=== PATIENT | female | born 1960 | race Caucasian/White ===

== ENCOUNTER 2017-01-22 08:05 | Inpatient (IN) | payer MEDICARE, OTHER ==
[~2017-01-22] VITALS: Ht 165.1 cm; Wt 66.0 kg
[~2017-01-22 08:05] MED LIST: ABAT125S; ALPR-475 PO; AMLO10TA4 PO; AMLO1CAP6 PO; AMOX-291 PO; ASCO10004 PO; ASCO100072 PO; ASPI-496 PO; ATOR40TA PO; CALC-141 PO; CALC0.25 PO; CALC667C PO; CALC667C3 PO; CARNITINE PO; CEFA1PIG IV; CEFD300C2 PO; CEFT2FRO2 IV; CHOL20003 PO; CLOP75TA22 PO; CYAN500T18 PO; DICL100G8 PO; DICL100G8 TD; DICL100G8 TP; DILT120C11 PO; DIPH1TAB PO; DOCU-30 PO; DOCU100C8 PO; DOXA2TAB9 PO; DOXY100T PO; DRON5CAP PO; ESOM40CA PO; FAMO40TA61 PO; FERR325T10 PO; FERR325T20 PO; FLUT1AER INH; FLUT1DIS IH; FLUT1DIS3 INH; FOLI0.8T2 PO; FURO-92 PO; HEPA50004 SQ; LACT1CAP24 PO; LACT1CAP35 PO; LEVO100T PO; LEVO100T5 PO; LIDO700A30 TD; LIDO700A5 TD; MAGN400T7 PO; MELA1TAB22 PO; MELA1TAB8 PO; MELA3TAB PO; MELA3TAB37 PO; METO25TA35 PO; METO25TA9 PO; METR500T PO; METROPOLOL PO; MORP10CA10 PO; MORP15TA PO; MORP30TA3 PO; MORP60CA16 PO; MORP60TA22 PO; MULT-326 PO; MYCO180T3 MT; MYCO250C PO; NALO25TA PO; OMEG1CAP34 PO; ONDA8TAB12 PO; ONDA8TAB9 PO; OSEL75CA PO; PANT40TA3 PO; PARO40TA45 PO; PHEN100C PO; PHEN50TA4 PO; PRED10TA PO; PRED10TA14 PO; PRED5TAB PO; PRED5TAB25 PO; PROM25TA10 PO; SODI650T PO; SPIR1TAB PO; UBID100C24 PO; UMEC62.5 INH; VIT1TABL73 PO; VITA1TAB26 PO; WARF2TAB PO; ZOLP-413 PO; [UNRECOGNIZED DRUG - CODE] PO; vitamin b6 PO
[2017-01-22] MEDS ORDERED: SODIUM CHLORIDE 0.9% 1,000 ML IV ONE (08:38)
[2017-01-22] MEDS ORDERED: DUONEB (09:01)
[2017-01-22] MEDS ORDERED: FAMO-79 PO (09:01)
[2017-01-22] MEDS ORDERED: WARF4TAB PO (09:04)
[2017-01-22 09:15] LABS: HEMOGLOBIN 11.6 g/dL (11.7-16.4)
[2017-01-22 09:18] LABS: BLOOD UREA NITROGEN 40 mg/dL (7-18)
[2017-01-22 09:25] LABS: ASPARTATE AMINO TRANSFERASE 32 U/L (15-37); IS PT STATUS REG ER OR PRE ER? YES
[2017-01-22] MEDS ORDERED: CEFTRIAXONE PMX 1GM/50ML 50 ML IVPB ONE (09:30)
[2017-01-22] MEDS ORDERED: CEFTRIAXONE PMX 1GM/50ML 50 ML ONE (09:45)
[2017-01-22 10:21] LABS: DIFF TOTAL CELLS COUNTED 100 CELL DIFF
[2017-01-22] MEDS ORDERED: NITROGLYCERIN OINT 2%, 1GM TP ONE ×2 (10:28→10:30)
[2017-01-22] MEDS ORDERED: FUROSEMIDE 40 MG/4 ML ONE (10:28)
[2017-01-22] MEDS ORDERED: FUROSEMIDE 100 MG/10 ML IV ONE (10:30)
[2017-01-22 10:32] LABS: ANISOCYTOSIS 1+; HYPOCHROMIA 1+; OVALOCYTES 1+; SCHISTOCYTES 1+; VERIFY COUNTS? YES
[2017-01-22] MEDS ORDERED: ENALAPRILAT 1.25 MG/ML, 2ML IV PRN (11:00)
[2017-01-22] MEDS ORDERED: LABETALOL 5MG/ML, 20ML IVPush PRN (11:00)
[2017-01-22] MEDS ORDERED: GUAIFENESIN/DM 200-20MG, 10ML UDC PO PRN (11:00)
[2017-01-22] MEDS ORDERED: MORPHINE SULFATE 4 MG/ML, 1ML IVPush PRN (11:00)
[2017-01-22] MEDS ORDERED: hydrALAzine 20 MG/ML, 1ML IV PRN (11:00)
[2017-01-22] MEDS ORDERED: DOCUSATE 100 MG CAPSULE PO PRN (11:00)
[2017-01-22] MEDS ORDERED: POLYETHYLENE GLYCOL 17 GM PACKET PO PRN (11:00)
[2017-01-22] MEDS ORDERED: VANCOMYCIN PER PHARMACY MC PRN (11:00)
[2017-01-22] MEDS ORDERED: ONDANSETRON 2MG/ML, 2ML IVP PRN (11:00)
[2017-01-22] MEDS ORDERED: ACETAMINOPHEN 325 MG TABLET PO PRN (11:00)
[2017-01-22] MEDS: PHENYTOIN 100 MG CAPSULE PO SCH ×3 (11:00→22:35)
[2017-01-22] MEDS: FLUTICASONE/VILANTEROL 100-25MCG/INH INH SCH (11:00)
[2017-01-22] MEDS ORDERED: PIPERACILLIN/TAZO/PMX 3.375GM 50 ML ONE (11:10)
[2017-01-22] MEDS ORDERED: FAMOTIDINE 20 MG TABLET ONE (11:10)
[2017-01-22] MEDS: FAMOTIDINE 20 MG TABLET PO SCH (11:13)
[2017-01-22] MEDS: PIPERACILLIN/TAZO/PMX 3.375GM 50 ML IV SCH ×3 (11:13→22:38)
[2017-01-22 13:22] VITALS: BP 157/81
[2017-01-22] MEDS: DILTIAZEM 120 MG CAP.ER.12H PO SCH ×2 (14:29→22:36)
[2017-01-22] MEDS ORDERED: PHARMACOKINETIC MONITORING MC PRN (14:30)
[2017-01-22] MEDS ORDERED: PHARMACOKINETIC CONSULTATION MC ONE (14:30)
[2017-01-22] MEDS ORDERED: VANCOMYCIN 1,300 MG in SODIUM CHLORIDE 0.9% 250 ML IV ONE (14:30)
[2017-01-22] MEDS: ALBUTEROL SULFATE 2.5 MG/3 ML NPPB SCH ×2 (15:40→22:13)
[2017-01-22] MEDS: DRONABINOL 5 MG CAPSULE PO SCH ×2 (15:55→19:30)
[2017-01-22] MEDS: morphine SULFATE 60 MG TABLET.ER PO SCH ×2 (16:00→22:58)
[2017-01-22] MEDS ORDERED: PHYTONADIONE 10 MG/ML, 1ML IM ONE (18:00)
[2017-01-22 20:07] VITALS: BP 154/81
[2017-01-22] MEDS: SODIUM CHLORIDE FLUSH 10ML SYR IVF SCH (22:34)
[2017-01-22] MEDS: ATORVASTATIN 40 MG TABLET PO SCH (22:36)
[2017-01-22] MEDS: PAROXETINE 20 MG TABLET PO SCH (22:37)
[2017-01-23 01:45] VITALS: BP 167/84
[2017-01-23] MEDS: ALBUTEROL SULFATE 2.5 MG/3 ML NPPB SCH ×5 (02:13→23:31)
[2017-01-23] MEDS: PIPERACILLIN/TAZO/PMX 3.375GM 50 ML IV SCH ×3 (04:52→22:46)
[2017-01-23 05:41] LABS: HEMOGLOBIN 10.5 g/dL (11.7-16.4)
[2017-01-23 05:51] LABS: BLOOD UREA NITROGEN 54 mg/dL (7-18)
[2017-01-23 05:58] LABS: DIFF TOTAL CELLS COUNTED 100 CELL DIFF
[2017-01-23 06:00] LABS: VERIFY COUNTS? YES
[2017-01-23 06:01] LABS: ANISOCYTOSIS 1+; HYPOCHROMIA 1+; MICROCYTOSIS 1+; OVALOCYTES 1+; TARGET CELLS 1+
[2017-01-23 06:06] LABS: SCHISTOCYTES 1+
[2017-01-23 06:35] VITALS: BP 154/80
[2017-01-23] MEDS: LACTOBACILLUS CHEW TABLET PO SCH (07:49)
[2017-01-23] MEDS: SODIUM CHLORIDE FLUSH 10ML SYR IVF SCH ×2 (07:49→20:31)
[2017-01-23] MEDS: FOLIC ACID 1 MG TABLET PO SCH (07:49)
[2017-01-23] MEDS: FAMOTIDINE 20 MG TABLET PO SCH (07:49)
[2017-01-23] MEDS: AMLODIPINE 5 MG TABLET PO SCH (07:49)
[2017-01-23] MEDS: CALCIUM ACETATE 667 MG CAPSULE PO SCH (07:49)
[2017-01-23] MEDS: FUROSEMIDE 40 MG TABLET PO SCH (07:49)
[2017-01-23] MEDS: PHENYTOIN 100 MG CAPSULE PO SCH ×3 (07:49→20:32)
[2017-01-23] MEDS: morphine SULFATE 60 MG TABLET.ER PO SCH ×3 (07:50→20:32)
[2017-01-23] MEDS: LEVOTHYROXINE 100 MCG TABLET PO SCH (07:50)
[2017-01-23] MEDS: DRONABINOL 5 MG CAPSULE PO SCH ×3 (07:50→19:15)
[2017-01-23] MEDS: DILTIAZEM 120 MG CAP.ER.12H PO SCH ×2 (07:50→20:32)
[2017-01-23] MEDS ORDERED: WARFARIN SODIUM 4 MG PO SCH (09:00)
[2017-01-23] MEDS: FLUTICASONE/VILANTEROL 100-25MCG/INH INH SCH (11:21)
[2017-01-23 13:14] VITALS: BP 132/68
[2017-01-23] MEDS ORDERED: VANCOMYCIN 1,200 MG in SODIUM CHLORIDE 0.9% 250 ML IV ONE (19:00)
[2017-01-23 19:29] VITALS: BP 147/75
[2017-01-23] MEDS ORDERED: PHYTONADIONE 10 MG/ML, 1ML IM ONE (20:00)
[2017-01-23] MEDS: ATORVASTATIN 40 MG TABLET PO SCH (20:32)
[2017-01-23] MEDS: PAROXETINE 20 MG TABLET PO SCH (20:33)
[2017-01-24 02:03] VITALS: BP 166/84
[2017-01-24] MEDS: ALBUTEROL SULFATE 2.5 MG/3 ML NPPB SCH ×5 (02:28→23:30)
[2017-01-24] MEDS: PIPERACILLIN/TAZO/PMX 3.375GM 50 ML IV SCH ×4 (04:24→22:06)
[2017-01-24] MEDS: LEVOTHYROXINE 100 MCG TABLET PO SCH (04:24)
[2017-01-24 06:12] LABS: BLOOD UREA NITROGEN 35 mg/dL (7-18)
[2017-01-24] MEDS ORDERED: DARBEPOETIN 60 MCG/ML SQ SCH (08:30)
[2017-01-24 08:39] VITALS: BP 171/86
[2017-01-24] MEDS: morphine SULFATE 60 MG TABLET.ER PO SCH ×3 (08:42→21:14)
[2017-01-24] MEDS: CALCIUM ACETATE 667 MG CAPSULE PO SCH (08:44)
[2017-01-24] MEDS: FAMOTIDINE 20 MG TABLET PO SCH (08:44)
[2017-01-24] MEDS: DRONABINOL 5 MG CAPSULE PO SCH ×4 (08:44→21:00)
[2017-01-24] MEDS: SODIUM CHLORIDE FLUSH 10ML SYR IVF SCH ×2 (08:45→21:05)
[2017-01-24] MEDS: DILTIAZEM 120 MG CAP.ER.12H PO SCH ×2 (08:45→21:06)
[2017-01-24] MEDS: AMLODIPINE 5 MG TABLET PO SCH (08:45)
[2017-01-24] MEDS: LACTOBACILLUS CHEW TABLET PO SCH (08:45)
[2017-01-24] MEDS: PHENYTOIN 100 MG CAPSULE PO SCH ×3 (08:45→21:06)
[2017-01-24] MEDS: FUROSEMIDE 40 MG TABLET PO SCH (08:45)
[2017-01-24] MEDS: FOLIC ACID 1 MG TABLET PO SCH (08:45)
[2017-01-24] MEDS: FLUTICASONE/VILANTEROL 100-25MCG/INH INH SCH (08:46)
[2017-01-24 16:43] VITALS: BP 150/81
[2017-01-24 19:39] VITALS: BP 132/67
[2017-01-24] MEDS: ATORVASTATIN 40 MG TABLET PO SCH (21:06)
[2017-01-24] MEDS: PAROXETINE 20 MG TABLET PO SCH (22:00)
[2017-01-25 01:19] VITALS: BP 153/77
[2017-01-25] MEDS: ALBUTEROL SULFATE 2.5 MG/3 ML NPPB SCH ×6 (02:47→21:55)
[2017-01-25] MEDS: PIPERACILLIN/TAZO/PMX 3.375GM 50 ML IV SCH ×4 (03:29→23:05)
[2017-01-25 05:33] LABS: HEMOGLOBIN 9.6 g/dL (11.7-16.4)
[2017-01-25 05:57] LABS: BLOOD UREA NITROGEN 51 mg/dL (7-18)
[2017-01-25] MEDS: LEVOTHYROXINE 100 MCG TABLET PO SCH (06:22)
[2017-01-25 06:30] LABS: DIFF TOTAL CELLS COUNTED 100 CELL DIFF
[2017-01-25 06:32] LABS: ANISOCYTOSIS 1+; VERIFY COUNTS? YES
[2017-01-25 06:33] LABS: OVALOCYTES 1+; SCHISTOCYTES 1+
[2017-01-25 08:18] VITALS: BP 161/81
[2017-01-25] MEDS: morphine SULFATE 60 MG TABLET.ER PO SCH ×3 (08:28→21:00)
[2017-01-25] MEDS: DILTIAZEM 120 MG CAP.ER.12H PO SCH ×2 (08:29→23:00)
[2017-01-25] MEDS: FLUTICASONE/VILANTEROL 100-25MCG/INH INH SCH (08:29)
[2017-01-25] MEDS: FUROSEMIDE 40 MG TABLET PO SCH (08:29)
[2017-01-25] MEDS: SODIUM CHLORIDE FLUSH 10ML SYR IVF SCH ×2 (08:30→22:57)
[2017-01-25] MEDS: FOLIC ACID 1 MG TABLET PO SCH (08:30)
[2017-01-25] MEDS: PHENYTOIN 100 MG CAPSULE PO SCH ×3 (08:30→23:00)
[2017-01-25] MEDS: FAMOTIDINE 20 MG TABLET PO SCH (08:31)
[2017-01-25] MEDS: DRONABINOL 5 MG CAPSULE PO SCH ×3 (08:31→22:59)
[2017-01-25] MEDS: AMLODIPINE 5 MG TABLET PO SCH (08:31)
[2017-01-25] MEDS: LACTOBACILLUS CHEW TABLET PO SCH (08:31)
[2017-01-25] MEDS: CALCIUM ACETATE 667 MG CAPSULE PO SCH (08:32)
[2017-01-25 14:30] VITALS: BP 136/86
[2017-01-25 19:20] VITALS: BP 153/77
[2017-01-25] MEDS: ATORVASTATIN 40 MG TABLET PO SCH (22:58)
[2017-01-25] MEDS: PAROXETINE 20 MG TABLET PO SCH (22:58)
[2017-01-26] MEDS: ALBUTEROL SULFATE 2.5 MG/3 ML NPPB SCH ×6 (02:25→22:54)
[2017-01-26 02:59] VITALS: BP 165/77
[2017-01-26] MEDS: PIPERACILLIN/TAZO/PMX 3.375GM 50 ML IV SCH ×3 (05:19→16:00)
[2017-01-26] MEDS: LEVOTHYROXINE 100 MCG TABLET PO SCH (05:19)
[2017-01-26 05:44] LABS: BLOOD UREA NITROGEN 63 mg/dL (7-18)
[2017-01-26 08:11] VITALS: BP 159/80
[2017-01-26] MEDS: SODIUM CHLORIDE FLUSH 10ML SYR IVF SCH ×2 (09:00→21:57)
[2017-01-26] MEDS: FOLIC ACID 1 MG TABLET PO SCH (12:21)
[2017-01-26] MEDS: FLUTICASONE/VILANTEROL 100-25MCG/INH INH SCH (12:21)
[2017-01-26] MEDS: PHENYTOIN 100 MG CAPSULE PO SCH ×3 (12:23→22:00)
[2017-01-26] MEDS: morphine SULFATE 60 MG TABLET.ER PO SCH ×3 (12:23→22:01)
[2017-01-26] MEDS: LACTOBACILLUS CHEW TABLET PO SCH (12:24)
[2017-01-26] MEDS: CALCIUM ACETATE 667 MG CAPSULE PO SCH (12:25)
[2017-01-26] MEDS: AMLODIPINE 5 MG TABLET PO SCH (12:25)
[2017-01-26] MEDS: FAMOTIDINE 20 MG TABLET PO SCH (12:26)
[2017-01-26] MEDS: DILTIAZEM 120 MG CAP.ER.12H PO SCH ×2 (12:26→22:00)
[2017-01-26] MEDS: FUROSEMIDE 40 MG TABLET PO SCH (12:27)
[2017-01-26] MEDS: DRONABINOL 5 MG CAPSULE PO SCH ×4 (12:28→22:02)
[2017-01-26 13:55] VITALS: BP 153/78
[2017-01-26 19:12] VITALS: BP 156/72
[2017-01-26] MEDS: ATORVASTATIN 40 MG TABLET PO SCH (22:00)
[2017-01-26] MEDS: PAROXETINE 20 MG TABLET PO SCH (22:00)
[2017-01-26] MEDS: PIPERACILLIN/TAZO/PMX 2.25GM 50 ML IV SCH (22:03)
[2017-01-27 02:49] VITALS: BP 152/79
[2017-01-27] MEDS: ALBUTEROL SULFATE 2.5 MG/3 ML NPPB SCH ×3 (03:00→10:53)
[2017-01-27] MEDS: PIPERACILLIN/TAZO/PMX 2.25GM 50 ML IV SCH ×2 (05:07→17:43)
[2017-01-27] MEDS: LEVOTHYROXINE 100 MCG TABLET PO SCH (05:07)
[2017-01-27 06:42] VITALS: BP 155/71
[2017-01-27] MEDS ORDERED: DOXY100T PO (07:00)
[2017-01-27] MEDS ORDERED: CEFD300C2 PO (07:00)
[2017-01-27] MEDS ORDERED: WARF3TAB7 PO (07:07)
[2017-01-27] MEDS: SODIUM CHLORIDE FLUSH 10ML SYR IVF SCH (10:04)
[2017-01-27] MEDS: FLUTICASONE/VILANTEROL 100-25MCG/INH INH SCH (10:04)
[2017-01-27] MEDS: DRONABINOL 5 MG CAPSULE PO SCH ×3 (10:04→16:57)
[2017-01-27] MEDS: FOLIC ACID 1 MG TABLET PO SCH (10:05)
[2017-01-27] MEDS: PHENYTOIN 100 MG CAPSULE PO SCH ×2 (10:05→17:43)
[2017-01-27] MEDS: morphine SULFATE 60 MG TABLET.ER PO SCH ×2 (10:05→17:43)
[2017-01-27] MEDS: DILTIAZEM 120 MG CAP.ER.12H PO SCH (10:05)
[2017-01-27] MEDS: LACTOBACILLUS CHEW TABLET PO SCH (10:06)
[2017-01-27] MEDS: FUROSEMIDE 40 MG TABLET PO SCH (10:06)
[2017-01-27] MEDS: AMLODIPINE 5 MG TABLET PO SCH (10:07)
[2017-01-27] MEDS: FAMOTIDINE 20 MG TABLET PO SCH (10:07)
[2017-01-27] MEDS: CALCIUM ACETATE 667 MG CAPSULE PO SCH (10:07)
[2017-01-27] MEDS: VANCOMYCIN 1,300 MG in SODIUM CHLORIDE 0.9% 250 ML IV ONE ×2 (11:30→14:50)
[2017-01-27 15:34] VITALS: BP 142/79
[2017-01-27] MEDS ORDERED: ALBUTEROL/IPRATROPIUM 2.5MG/0.5MG, 3 ML ONE (19:06)
[2017-01-27 19:33] VITALS: BP 132/53
== END 2017-01-27 20:36 | disposition home health service (06) | DRG 871 ==
LOC: ED 10:05 → EDIP 10:06 → ED 10:19 → 5SO 12:31
PROVIDERS: ADMIT Internal Medicine; ATTEND Internal Medicine
PROC: 5A1D60Z (ICD-10-PCS; principal; 2017-01-22)
DX: A41.9 Sepsis, unspecified organism (principal); I50.33 Acute on chronic diastolic (congestive) heart failure; J96.21 Acute and chronic respiratory failure with hypoxia; E43 Unspecified severe protein-calorie malnutrition; N18.6 End stage renal disease; J18.9 Pneumonia, unspecified organism; E87.1 Hypo-osmolality and hyponatremia; I13.2 Hypertensive heart and chronic kidney disease with heart failure and with stage 5 chronic kidney disease, or end stage renal disease; D68.69 Other thrombophilia; F11.20 Opioid dependence, uncomplicated; J44.0 Chronic obstructive pulmonary disease with (acute) lower respiratory infection; J44.1 Chronic obstructive pulmonary disease with (acute) exacerbation; Z68.23 Body mass index [BMI] 23.0-23.9, adult; Y95 Nosocomial condition; K21.9 Gastro-esophageal reflux disease without esophagitis; M32.9 Systemic lupus erythematosus, unspecified; I73.9 Peripheral vascular disease, unspecified; D63.1 Anemia in chronic kidney disease; E03.9 Hypothyroidism, unspecified; E78.00 Pure hypercholesterolemia, unspecified; F32.9 Major depressive disorder, single episode, unspecified; G40.909 Epilepsy, unspecified, not intractable, without status epilepticus; E78.5 Hyperlipidemia, unspecified; I07.1 Rheumatic tricuspid insufficiency; I34.0 Nonrheumatic mitral (valve) insufficiency; I48.91 Unspecified atrial fibrillation; T40.605A Adverse effect of unspecified narcotics, initial encounter; K59.03 Drug induced constipation; Z79.01 Long term (current) use of anticoagulants; Z86.14 Personal history of Methicillin resistant Staphylococcus aureus infection; Z86.19 Personal history of other infectious and parasitic diseases; Z86.73 Personal history of transient ischemic attack (TIA), and cerebral infarction without residual deficits; Z87.891 Personal history of nicotine dependence; Z99.2 Dependence on renal dialysis; Z90.49 Acquired absence of other specified parts of digestive tract; Z90.721 Acquired absence of ovaries, unilateral
CPT/HCPCS: 36415; 71010; 80048; 80053; 80069; 80202; 83605; 83880; 84484; 85025; 85610; 85730; 87040; 87324; 93005; 94640; 96365; 96375; J0696; J0881; J1940; J2543; J3370; J3430; J7613; Q0167; J7030; J7050; J7512

== ENCOUNTER 2020-01-20 05:55 | Inpatient (IN) | payer MEDICARE, OTHER ==
[~2020-01-20] VITALS: Ht 167.6 cm; Wt 69.8 kg
[~2020-01-20 05:55] MED LIST changes: -ALPR-475 PO; +ALPR0.5T7 PO; -CEFD300C2 PO; +CEFD300C37 PO; +CHOL2000 PO; -CHOL20003 PO; -CLOP75TA22 PO; +CLOP75TA52 PO; +DICL100G19 PO; +DICL100G19 TD; +DICL100G19 TP; -DICL100G8 PO; -DICL100G8 TD; -DICL100G8 TP; +DOCU-131 PO; -DOCU-30 PO; +DOCU100C33 PO; -DOCU100C8 PO; +DUONEB; +FAMO-79 PO; -FERR325T10 PO; +FERR325T17 PO; +FERR325T18 PO; -FERR325T20 PO; -MAGN400T7 PO; +MAGN400T9 PO; -MELA3TAB PO; -MELA3TAB37 PO; +MELA3TAB56 PO; +MELA3TAB62 PO; +METO-282 PO; -METO25TA9 PO; +MORP-30 PO; -MORP30TA3 PO; -OSEL75CA PO; +OSEL75CA26 PO; -PARO40TA45 PO; +PARO40TA61 PO; +WARF3TAB52 PO; +WARF4TAB PO
[2020-01-20] MEDS ORDERED: SODIUM CHLORIDE 0.9% 1,000ML IVBOLUS ONE ×2 (06:00→07:30)
[2020-01-20] MEDS ORDERED: SODIUM CHLORIDE FLUSH 10ML SYR IVF ONE (06:00)
--- NOTE | 2020-01-20 06:05 | NUR ---
PT BIB [facility] AFTER CALLED 911 DUE TO PT HAVING GENERALIZED WEAKNESS. PER , PT T, , THURSDAY DIALYSIS PATIENT. PT HAS MISSED LAST TWO DIALYSIS APPT PER . PER EMS, FSBS 104. PT BP 222/64 PER EMS. PT ARRIVES TO [facility] ED AND CHANGED INTO GOWN IN [facility]. PT ATTACHED TO CARDIAC AND VS MONITORS. VSS AT THIS TIME. PT PLACED ON 2L NC. PT FSBS REPEATED. FSBS 99. IV ACCESS ESTABLISHED. LABS DRAWN. DR ELLIOTT AT BS AT THIS TIME. AWAITING NEW ORDERS.
--- NOTE | 2020-01-20 06:35 | NUR ---
PT JEWELRY REMOVED AT THIS TIME. PT HAS SIX RINGS AND ONE BRACELET PLACED IN A RED BIOHAZARD BAG WITH PT LABEL. XRAY AT BS AT THIS TIME.
[2020-01-20 06:42] LABS: MEAN CORPUSCULAR HEMOGLOBIN 31.2 pg (27.0-34.8); MEAN CORPUSCULAR VOLUME 97.6 fL (80-100); MEAN PLATELET VOLUME 9.5 fL (7.4-10.4); PLATELET COUNT 239 x10^3/uL (130-400); RED BLOOD COUNT 3.69 x10^6/uL (3.82-5.3); RED CELL DISTRIBUTION WIDTH 18.6 % (9.6-15.2)
--- NOTE | 2020-01-20 06:44 | NUR ---
lab calls, chemistry hemolyzed, currently drawing at this time, will attempt to obtain again at this time.
--- NOTE | 2020-01-20 06:57 | NUR ---
BS REPORT OF PT TO RN ДМИТРИЙ. ALL QUESTIONS ANSWERED.
--- NOTE | 2020-01-20 07:00 | NUR ---
BEDSIDE SBAR HAND-OFF REPORT RECEIVED FROM BUBBA HALE. ASSUMING CARE OF PATIENT.
[2020-01-20 07:15] LABS: ALANINE AMINOTRANSFERASE 106 U/L (12-78); ALBUMIN 3.4 g/dL (3.4-5.0); ANION GAP 9 mmol/L (5-15); CALCIUM 8.8 mg/dL (8.5-10.1); CHLORIDE 92 mmol/L (98-107); CREATININE 7.17 mg/dL (0.55-1.02)
--- NOTE | 2020-01-20 07:15 | NUR ---
PT MORE ALERT AND ASKING FOR WATER. WATER GIVEN TO DRINK APPROVED BY DR. ELLIOTT. 2ND 500 ML NS BOLUS ORDERED AND STARTED. CHAP STICK PROVIDED.
[2020-01-20 07:18] LABS: BASOPHILS # (AUTO) 0.05 x10^3/uL (0-0.1); BASOPHILS % (AUTO) 1 % (0-1); EOSINOPHILS # (AUTO) 0.01 x10^3/uL (0-0.4); EOSINOPHILS % (AUTO) 0 % (1-7); LYMPHOCYTES # (AUTO) 1.03 x10^3/uL (1-3.4); LYMPHOCYTES % (AUTO) 19 % (22-44); MD SCAN; MONOCYTES # (AUTO) 0.57 x10^3/uL (0.2-0.8); MONOCYTES % (AUTO) 10 % (2-9); NEUTROPHILS # (AUTO) 3.87 x10^3/uL (1.8-6.8); NEUTROPHILS % (AUTO) 70 % (42-75)
[2020-01-20 07:19] LABS: ALKALINE PHOSPHATASE 70 U/L (45-117); BILIRUBIN,TOTAL 0.7 mg/dL (0.2-1.0); TOTAL PROTEIN 8.5 g/dL (6.4-8.2)
[2020-01-20] MEDS ORDERED: BISA-29 PO (07:33)
[2020-01-20] MEDS ORDERED: DOCU100C33 PO (07:39)
[2020-01-20] MEDS ORDERED: FURO80TA3 PO (07:40)
[2020-01-20] MEDS ORDERED: LEVO75TA5 PO (07:41)
[2020-01-20] MEDS ORDERED: MELA5TAB14 PO (07:42)
[2020-01-20] MEDS ORDERED: MORP80CA PO (07:44)
[2020-01-20] MEDS ORDERED: MORP30TA PO (07:50)
[2020-01-20] MEDS ORDERED: PANT40TA5 PO (07:50)
[2020-01-20] MEDS ORDERED: LIDO700A20 TD (07:51)
[2020-01-20] MEDS ORDERED: [UNRECOGNIZED DRUG - OTHER] (07:54)
[2020-01-20] MEDS ORDERED: MORP50CA19 PO (08:10)
--- NOTE | 2020-01-20 08:53 | NUR ---
STRAIGHT CATH UA PERFORMED USING ASEPTIC TECHNIQUE. URINE SPECIMEN WALKED TO LAB.
[2020-01-20] MEDS ORDERED: CEFTRIAXONE PMX 1GM/50ML 50 ML ONE (08:54)
[2020-01-20] MEDS ORDERED: CEFTRIAXONE PMX 1GM/50ML 50 ML IVPB ONE (09:00)
[2020-01-20 09:11] LABS: MICROSCOPIC AUTO
[2020-01-20] MEDS ORDERED: FUROSEMIDE 40 MG/4 ML ONE (09:11)
[2020-01-20] MEDS ORDERED: HEPARIN 5,000 UNITS/ML, 1ML ONE (09:12)
[2020-01-20 09:14] LABS: CULTURE INDICATED? NO
[2020-01-20 09:16] LABS: O2 FLOW 4 L/min
[2020-01-20] MEDS: HEPARIN 5,000 UNITS/ML, 1ML SQ SCH ×2 (09:23→17:25)
[2020-01-20] MEDS ORDERED: PIPERACILLIN/TAZO 2.25 GM in SODIUM CHLORIDE 0.9% 50 ML IV SCH (09:30)
[2020-01-20] MEDS ORDERED: ACETAMINOPHEN 325 MG TABLET PO PRN (09:30)
[2020-01-20] MEDS ORDERED: SODIUM CHLORIDE FLUSH 10ML SYR IVF PRN (09:30)
[2020-01-20] MEDS ORDERED: FUROSEMIDE 100 MG/10 ML IV ONE (09:30)
[2020-01-20] MEDS ORDERED: ONDANSETRON ODT 4 MG PO PRN (09:30)
[2020-01-20] MEDS ORDERED: ONDANSETRON 2MG/ML, 2ML IVPush PRN (09:30)
[2020-01-20] MEDS ORDERED: VANCOMYCIN PER PHARMACY MC PRN (09:30)
[2020-01-20] MEDS ORDERED: hydrALAzine 20 MG/ML, 1ML IVPush PRN (09:30)
[2020-01-20] MEDS: PIPERACILLIN/TAZO/PMX 2.25GM 50 ML IVPB SCH ×2 (09:32→21:19)
--- NOTE | 2020-01-20 10:48 | NUR ---
PT UP TO BEDSIDE COMMODE AND HAD A BM AND VOIDED WELL.
--- NOTE | 2020-01-20 11:06 | NUR ---
Ino RN: Report called to [facility] tele 2. Pt ready for transfer to floor.
[2020-01-20] MEDS ORDERED: VANCOMYCIN 1,400 MG in SODIUM CHLORIDE 0.9% 250 ML IV ONE (13:00)
[2020-01-20] MEDS ORDERED: FUROSEMIDE 40 MG/4 ML IV ONE (13:00)
[2020-01-20] MEDS ORDERED: PHARMACOKINETIC MONITORING MC PRN (13:00)
[2020-01-20] MEDS ORDERED: PHARMACOKINETIC CONSULTATION MC ONE (13:00)
[2020-01-20] MEDS: morphine SULFATE 10 MG/ML, 1ML IVPush PRN ×2 (13:11→20:13)
[2020-01-20] MEDS: CALCIUM ACETATE 667 MG CAPSULE PO SCH ×2 (13:15→17:20)
[2020-01-20 13:29] VITALS: BP 192/92
[2020-01-20 17:23] VITALS: BP 227/96
[2020-01-20 18:37] VITALS: BP 227/92
[2020-01-20] MEDS ORDERED: hydrALAzine 20 MG/ML, 1ML IV ONE ×2 (19:00→21:30)
[2020-01-20] MEDS: hydrALAzine 20 MG/ML, 1ML IVPush PRN (20:05)
[2020-01-20 20:24] VITALS: BP 219/88
[2020-01-20 21:16] VITALS: BP 193/74
[2020-01-20] MEDS: PANTOPRAZOLE 40MG TABLET PO SCH (21:20)
[2020-01-20 22:54] VITALS: BP 186/77
[2020-01-21] VITALS (10 sets, daily range): BP systolic 174–220; BP diastolic 74–87
[2020-01-21] MEDS: ENALAPRILAT 1.25 MG/ML, 2ML IV PRN ×3 (01:08→20:28)
[2020-01-21] MEDS: HEPARIN 5,000 UNITS/ML, 1ML SQ SCH ×2 (01:09→15:44)
[2020-01-21] MEDS: morphine SULFATE 10 MG/ML, 1ML IVPush PRN (01:24)
[2020-01-21] MEDS: hydrALAzine 20 MG/ML, 1ML IVPush PRN ×3 (02:04→11:34)
[2020-01-21 04:45] LABS: BASOPHILS # (AUTO) 0.05 x10^3/uL (0-0.1); BASOPHILS % (AUTO) 1 % (0-1); EOSINOPHILS % (AUTO) 0 % (1-7); LYMPHOCYTES # (AUTO) 0.31 x10^3/uL (1-3.4); LYMPHOCYTES % (AUTO) 5 % (22-44); MD NO; MEAN CORPUSCULAR HEMOGLOBIN 30.8 pg (27.0-34.8); MEAN CORPUSCULAR HGB CONC 31.6 g/dL (32.4-35.8); MEAN CORPUSCULAR VOLUME 97.6 fL (80-100); MEAN PLATELET VOLUME 8.6 fL (7.4-10.4); MONOCYTES # (AUTO) 0.43 x10^3/uL (0.2-0.8); MONOCYTES % (AUTO) 7 % (2-9); NEUTROPHILS # (AUTO) 5.06 x10^3/uL (1.8-6.8); NEUTROPHILS % (AUTO) 87 % (42-75); PLATELET COUNT 157 x10^3/uL (130-400); RED BLOOD COUNT 3.77 x10^6/uL (3.82-5.3); RED CELL DISTRIBUTION WIDTH 18.8 % (9.6-15.2)
[2020-01-21 04:49] LABS: ANION GAP 11 mmol/L (5-15); CALCIUM 9.1 mg/dL (8.5-10.1); CHLORIDE 97 mmol/L (98-107)
[2020-01-21 05:00] LABS: CREATININE 4.65 mg/dL (0.55-1.02); VANCOMYCIN,RANDOM 22.2 mcg/mL
[2020-01-21] MEDS: LEVOTHYROXINE 75 MCG TABLET PO SCH (05:42)
[2020-01-21] MEDS: PIPERACILLIN/TAZO/PMX 2.25GM 50 ML IVPB SCH ×2 (05:42→15:44)
[2020-01-21] MEDS: CALCIUM ACETATE 667 MG CAPSULE PO SCH ×3 (10:45→17:00)
[2020-01-21] MEDS: PANTOPRAZOLE 40MG TABLET PO SCH ×2 (10:46→20:17)
[2020-01-21] MEDS: AMLODIPINE 10 MG TAB PO SCH (10:46)
[2020-01-21] MEDS ORDERED: LABETALOL 5MG/ML, 20ML IVPush PRN (13:30)
[2020-01-21] MEDS: hydrALAzine 20 MG/ML, 1ML IV SCH (16:22)
[2020-01-21] MEDS ORDERED: VANCOMYCIN 1,200 MG in SODIUM CHLORIDE 0.9% 250 ML IV SCH (18:00)
[2020-01-21] MEDS: LABETALOL 5MG/ML, 20ML IVPush PRN (21:43)
[2020-01-22] VITALS (10 sets, daily range): BP systolic 158–221; BP diastolic 72–88
[2020-01-22] MEDS: hydrALAzine 20 MG/ML, 1ML IV SCH ×3 (00:22→15:30)
[2020-01-22] MEDS: PIPERACILLIN/TAZO/PMX 2.25GM 50 ML IVPB SCH ×3 (00:22→15:31)
[2020-01-22] MEDS: HEPARIN 5,000 UNITS/ML, 1ML SQ SCH ×3 (00:23→15:30)
[2020-01-22] MEDS: ENALAPRILAT 1.25 MG/ML, 2ML IV PRN ×3 (02:50→20:29)
[2020-01-22] MEDS: LABETALOL 5MG/ML, 20ML IVPush PRN ×3 (03:53→14:47)
[2020-01-22] MEDS: LEVOTHYROXINE 75 MCG TABLET PO SCH (05:24)
[2020-01-22 06:10] LABS: BASOPHILS % (AUTO) 0 % (0-1); EOSINOPHILS % (AUTO) 0 % (1-7); LYMPHOCYTES # (AUTO) 0.36 x10^3/uL (1-3.4); LYMPHOCYTES % (AUTO) 10 % (22-44); MD NO; MEAN CORPUSCULAR HEMOGLOBIN 31.1 pg (27.0-34.8); MEAN CORPUSCULAR HGB CONC 31.9 g/dL (32.4-35.8); MEAN CORPUSCULAR VOLUME 97.5 fL (80-100); MEAN PLATELET VOLUME 7.9 fL (7.4-10.4); MONOCYTES # (AUTO) 0.38 x10^3/uL (0.2-0.8); MONOCYTES % (AUTO) 10 % (2-9); NEUTROPHILS # (AUTO) 3.04 x10^3/uL (1.8-6.8); NEUTROPHILS % (AUTO) 80 % (42-75); PLATELET COUNT 140 x10^3/uL (130-400); RED BLOOD COUNT 3.61 x10^6/uL (3.82-5.3); RED CELL DISTRIBUTION WIDTH 18.5 % (9.6-15.2)
[2020-01-22 06:21] LABS: ANION GAP 10 mmol/L (5-15); CALCIUM 9.3 mg/dL (8.5-10.1); CHLORIDE 102 mmol/L (98-107)
[2020-01-22 06:22] LABS: CREATININE 3.43 mg/dL (0.55-1.02)
[2020-01-22] MEDS: CALCIUM ACETATE 667 MG CAPSULE PO SCH ×3 (08:02→17:00)
[2020-01-22] MEDS: PANTOPRAZOLE 40MG TABLET PO SCH ×2 (09:00→20:29)
[2020-01-22] MEDS: AMLODIPINE 10 MG TAB PO SCH ×2 (10:09→15:31)
[2020-01-22 18:08] LABS: FREE T4 (FREE THYROXINE) 0.68 ng/dL (0.76-1.46)
[2020-01-22] MEDS ORDERED: VANCOMYCIN 1,200 MG in SODIUM CHLORIDE 0.9% 250 ML IV SCH (22:00)
[2020-01-23] VITALS (7 sets, daily range): BP systolic 162–184; BP diastolic 70–89
[2020-01-23 00:02] LABS: OCCULT BLOOD POSITIVE (NEGATIVE)
[2020-01-23] MEDS: HEPARIN 5,000 UNITS/ML, 1ML SQ SCH ×3 (00:59→15:30)
[2020-01-23] MEDS: PIPERACILLIN/TAZO/PMX 2.25GM 50 ML IVPB SCH ×3 (00:59→20:50)
[2020-01-23] MEDS: hydrALAzine 20 MG/ML, 1ML IV SCH ×3 (00:59→16:00)
[2020-01-23 05:21] LABS: ALBUMIN 3.2 g/dL (3.4-5.0); CALCIUM 8.8 mg/dL (8.5-10.1); CHLORIDE 102 mmol/L (98-107)
[2020-01-23 05:24] LABS: ANION GAP 10 mmol/L (5-15); CREATININE 4.54 mg/dL (0.55-1.02)
[2020-01-23] MEDS: LEVOTHYROXINE 75 MCG TABLET PO SCH (05:43)
[2020-01-23 05:57] LABS: BASOPHILS # (AUTO) 0.02 x10^3/uL (0-0.1); BASOPHILS % (AUTO) 1 % (0-1); EOSINOPHILS # (AUTO) 0.03 x10^3/uL (0-0.4); EOSINOPHILS % (AUTO) 1 % (1-7); LYMPHOCYTES # (AUTO) 0.47 x10^3/uL (1-3.4); LYMPHOCYTES % (AUTO) 13 % (22-44); MD SCAN; MEAN CORPUSCULAR HEMOGLOBIN 31.2 pg (27.0-34.8); MEAN CORPUSCULAR HGB CONC 32.1 g/dL (32.4-35.8); MEAN CORPUSCULAR VOLUME 97.3 fL (80-100); MEAN PLATELET VOLUME 7.6 fL (7.4-10.4); MONOCYTES # (AUTO) 0.47 x10^3/uL (0.2-0.8); MONOCYTES % (AUTO) 13 % (2-9); NEUTROPHILS # (AUTO) 2.64 x10^3/uL (1.8-6.8); NEUTROPHILS % (AUTO) 73 % (42-75); PLATELET COUNT 141 x10^3/uL (130-400); RED BLOOD COUNT 3.42 x10^6/uL (3.82-5.3); RED CELL DISTRIBUTION WIDTH 18.3 % (9.6-15.2)
[2020-01-23] MEDS: ENALAPRILAT 1.25 MG/ML, 2ML IV PRN (06:07)
[2020-01-23] MEDS: CALCIUM ACETATE 667 MG CAPSULE PO SCH ×3 (08:00→17:00)
[2020-01-23] MEDS: PANTOPRAZOLE 40MG TABLET PO SCH ×2 (08:26→20:50)
[2020-01-23] MEDS: AMLODIPINE 10 MG TAB PO SCH (08:26)
[2020-01-23] MEDS: OXYcodone IR 5MG TABLET PO PRN (14:05)
[2020-01-24 00:20] VITALS: BP 180/83
[2020-01-24] MEDS: HEPARIN 5,000 UNITS/ML, 1ML SQ SCH ×2 (00:23→08:26)
[2020-01-24] MEDS: hydrALAzine 20 MG/ML, 1ML IV SCH ×2 (00:24→08:25)
[2020-01-24] MEDS: PIPERACILLIN/TAZO/PMX 2.25GM 50 ML IVPB SCH ×2 (05:06→12:00)
[2020-01-24] MEDS: OXYcodone IR 5MG TABLET PO PRN (05:06)
[2020-01-24 05:12] VITALS: BP 177/73
[2020-01-24] MEDS: LABETALOL 5MG/ML, 20ML IVPush PRN (05:17)
[2020-01-24 05:41] LABS: ALBUMIN 3.4 g/dL (3.4-5.0); ANION GAP 11 mmol/L (5-15); CALCIUM 8.6 mg/dL (8.5-10.1); CHLORIDE 102 mmol/L (98-107)
[2020-01-24 05:43] LABS: CREATININE 5.26 mg/dL (0.55-1.02)
[2020-01-24 05:45] LABS: BASOPHILS # (AUTO) 0.02 x10^3/uL (0-0.1); BASOPHILS % (AUTO) 1 % (0-1); EOSINOPHILS # (AUTO) 0.04 x10^3/uL (0-0.4); EOSINOPHILS % (AUTO) 2 % (1-7); LYMPHOCYTES # (AUTO) 0.59 x10^3/uL (1-3.4); LYMPHOCYTES % (AUTO) 20 % (22-44); MD NO; MEAN CORPUSCULAR HEMOGLOBIN 31.3 pg (27.0-34.8); MEAN CORPUSCULAR HGB CONC 32.3 g/dL (32.4-35.8); MEAN CORPUSCULAR VOLUME 96.9 fL (80-100); MEAN PLATELET VOLUME 7.6 fL (7.4-10.4); MONOCYTES # (AUTO) 0.33 x10^3/uL (0.2-0.8); MONOCYTES % (AUTO) 11 % (2-9); NEUTROPHILS # (AUTO) 2.06 x10^3/uL (1.8-6.8); NEUTROPHILS % (AUTO) 68 % (42-75); PLATELET COUNT 137 x10^3/uL (130-400); RED BLOOD COUNT 3.66 x10^6/uL (3.82-5.3); RED CELL DISTRIBUTION WIDTH 18.9 % (9.6-15.2)
[2020-01-24 05:47] LABS: VANCOMYCIN,RANDOM 36.5 mcg/mL
[2020-01-24] MEDS ORDERED: LEVOTHYROXINE 100 MCG TABLET PO SCH (06:00)
[2020-01-24] MEDS ORDERED: THYROID 30 MG TABLET PO SCH (06:00)
[2020-01-24 06:48] VITALS: BP 177/77
[2020-01-24] MEDS: PANTOPRAZOLE 40MG TABLET PO SCH (08:26)
[2020-01-24] MEDS: CALCIUM ACETATE 667 MG CAPSULE PO SCH ×2 (08:26→12:00)
[2020-01-24] MEDS: AMLODIPINE 10 MG TAB PO SCH (08:26)
[2020-01-24] MEDS ORDERED: LEVO100T PO (09:42)
[2020-01-24] MEDS ORDERED: THYR30TA PO (09:42)
[2020-01-24 14:22] VITALS: BP 148/62
== END 2020-01-24 14:19 | disposition home or self-care (01) | DRG 91 ==
LOC: ED 07:31 → SUATTDRO 08:50 → EDIP 09:24 → 4WST 12:37
PROVIDERS: ADMIT Hospitalist; ATTEND Family Medicine
PROC: 5A1D70Z Performance of Urinary Filtration, Intermittent, Less than 6 Hours Per Day (ICD-10-PCS; 2020-01-21)
PROC: 5A1D70Z Performance of Urinary Filtration, Intermittent, Less than 6 Hours Per Day (ICD-10-PCS; 2020-01-23)
PROC: 0T9B70Z Drainage of Bladder with Drainage Device, Via Natural or Artificial Opening (ICD-10-PCS; principal; 2020-01-24)
PROC: 5A1D70Z Performance of Urinary Filtration, Intermittent, Less than 6 Hours Per Day (ICD-10-PCS; 2020-01-24)
DX: G92 Toxic encephalopathy (principal); N18.6 End stage renal disease; J96.21 Acute and chronic respiratory failure with hypoxia; I13.2 Hypertensive heart and chronic kidney disease with heart failure and with stage 5 chronic kidney disease, or end stage renal disease; D68.59 Other primary thrombophilia; F11.20 Opioid dependence, uncomplicated; F13.20 Sedative, hypnotic or anxiolytic dependence, uncomplicated; I50.32 Chronic diastolic (congestive) heart failure; E87.1 Hypo-osmolality and hyponatremia; E87.3 Alkalosis; E87.5 Hyperkalemia; K21.9 Gastro-esophageal reflux disease without esophagitis; G40.909 Epilepsy, unspecified, not intractable, without status epilepticus; E05.90 Thyrotoxicosis, unspecified without thyrotoxic crisis or storm; D63.1 Anemia in chronic kidney disease; E03.9 Hypothyroidism, unspecified; E78.5 Hyperlipidemia, unspecified; E87.6 Hypokalemia; I48.91 Unspecified atrial fibrillation; G89.29 Other chronic pain; I73.9 Peripheral vascular disease, unspecified; M32.9 Systemic lupus erythematosus, unspecified; N25.0 Renal osteodystrophy; Z90.49 Acquired absence of other specified parts of digestive tract; Z90.721 Acquired absence of ovaries, unilateral; Z87.891 Personal history of nicotine dependence; Z86.14 Personal history of Methicillin resistant Staphylococcus aureus infection; Z86.19 Personal history of other infectious and parasitic diseases; Z86.73 Personal history of transient ischemic attack (TIA), and cerebral infarction without residual deficits; Z91.15 Patient's noncompliance with renal dialysis; Z99.2 Dependence on renal dialysis
CPT/HCPCS: 36415; 36600; 71045; 74018; 80048; 80053; 80069; 80202; 81001; 82272; 82803; 82962; 83605; 83735; 83880; 84100; 84145; 84439; 84443; 84481; 84484; 85025; 86705; 86706; 87040; 87340; 90935; 93005; 96361; 96374; 99291; G0378; J0696; J1644; J1940; J2543; J3370; J0360; J2270; J7030; J7050